=== PATIENT | female | born 1970 | race Caucasian/White ===

== ENCOUNTER → 2017-07-03 | Outpatient (CLI) | payer OTHER ==
[2017-07-04 14:43] LABS: FOLATE (FOLIC ACID) 12.6 ng/mL (7.0-31.4)
== END ==
LOC: LAB 16:12
PROVIDERS: Nurse Practitioner Family
DX: D75.89 Other specified diseases of blood and blood-forming organs (principal)

== ENCOUNTER → 2018-03-31 | Outpatient (CLI) | payer OTHER ==
[2018-03-31 09:58] LABS: EOS % 0.5 % (1.0-5.0); HEMATOCRIT 40.9 % (37.0-47.0); HEMOGLOBIN 13.9 g/dL (12.5-16.0); LYMPH# 1.5 (1.50-4.00); MEAN CELL VOLUME 100 fl (78-100); MEAN CORPUSCULAR HEMOGLOBIN 34 pg (27-31); MEAN CORPUSCULAR HGB CONC 34 g/dL (33-37); MEAN PLATELET VOLUME 10.7 fl (7.4-10.4); MONO # 0.4 (0.20-0.80); NEU # 6.5 (1.40-6.50); PLATELET COUNT 260 K/mm3 (130-400); RED BLOOD COUNT 4.11 M/mm3 (4.10-5.30); RED CELL DISTRIBUTION WIDTH 12.8 % (11.5-14.5); WHITE BLOOD COUNT 8.5 K/mm3 (4.8-10.8)
[2018-03-31 10:12] LABS: ALBUMIN 4.4 g/dL (3.5-5.0); CALCIUM 9.5 mg/dL (8.4-10.2); POTASSIUM 4.4 mmol/L (3.6-5.0); TOTAL BILIRUBIN 0.9 mg/dL (0.2-1.3); TOTAL PROTEIN 7.1 g/dL (6.3-8.2)
[2018-03-31 23:46] LABS: PROLACTIN 6.6 ng/mL (5.2-26.5)
== END ==
LOC: LAB 09:29
PROVIDERS: Family Medicine
DX: Z00.00 Encounter for general adult medical examination without abnormal findings (principal); D35.2 Benign neoplasm of pituitary gland; R53.83 Other fatigue; E55.9 Vitamin D deficiency, unspecified; Z83.49 Family history of other endocrine, nutritional and metabolic diseases

== ENCOUNTER → 2019-09-08 | Outpatient (CLI) | payer OTHER | LOC: LAB 09-07 11:38 | DX: Z20.828 Contact with and (suspected) exposure to other viral communicable diseases (principal) ==

== ENCOUNTER → 2021-01-23 | Outpatient (CLI) | payer OTHER ==
[2021-01-23 11:41] LABS: BASO # 0.02 K/mm3 (0.02-0.10); EOS # 0.03 K/mm3 (0.04-0.40); EOS % 0.4 % (1.0-5.0); HEMATOCRIT 42.9 % (37.0-47.0); LYMPH# 1.95 K/mm3 (1.50-4.00); MEAN CELL VOLUME 101 fl (78-100); MEAN CORPUSCULAR HEMOGLOBIN 33 pg (27-31); MEAN CORPUSCULAR HGB CONC 33 g/dL (33-37); MONO # 0.36 K/mm3 (0.20-0.80); NEU # 5.69 K/mm3 (1.40-6.50); PLATELET COUNT 288 K/mm3 (130-400); RED BLOOD COUNT 4.24 M/mm3 (4.10-5.30); RED CELL DISTRIBUTION WIDTH 12.6 % (11.5-14.5); WHITE BLOOD COUNT 8.1 K/mm3 (4.8-10.8)
[2021-01-23 11:42] LABS: POTASSIUM 3.6 mmol/L (3.5-5.1)
[2021-01-23 11:43] LABS: ALBUMIN 4.1 g/dL (3.5-5.0)
[2021-01-23 11:44] LABS: CALCIUM 9.4 mg/dL (8.3-10.5)
[2021-01-23 11:45] LABS: TOTAL PROTEIN 6.9 g/dL (6.4-8.3)
[2021-01-23 11:47] LABS: TOTAL BILIRUBIN 0.7 mg/dL (0.2-1.2)
[2021-01-24 00:12] LABS: PROLACTIN AMS 4.9 ng/mL (5.2-26.5)
== END ==
LOC: LAB 10:30
PROVIDERS: Family Medicine
DX: Z00.00 Encounter for general adult medical examination without abnormal findings (principal); E55.9 Vitamin D deficiency, unspecified; D35.2 Benign neoplasm of pituitary gland; E78.5 Hyperlipidemia, unspecified; Z83.49 Family history of other endocrine, nutritional and metabolic diseases

== ENCOUNTER → 2021-01-26 | Outpatient (CLI) | payer OTHER ==
[2021-01-26 23:45] LABS: FOLLICLE STIMULATING HORMONE 15.3 mIU/mL (()); LUTENIZING HORMONE 4.8 mIU/mL (())
== END ==
LOC: LAB 08:19
PROVIDERS: Family Medicine
DX: E23.0 Hypopituitarism (principal)

== ENCOUNTER → 2022-06-27 | Outpatient (CLI) | payer OTHER ==
[2022-06-27 09:03] LABS: BASO # 0.02 K/mm3 (0.02-0.10); EOS # 0.03 K/mm3 (0.04-0.40); EOS % 0.4 % (1.0-5.0); HEMATOCRIT 42.6 % (37.0-47.0); HEMOGLOBIN 14.2 g/dL (12.5-16.0); LYMPH# 1.62 K/mm3 (1.50-4.00); MEAN CELL VOLUME 100 fl (78-100); MEAN CORPUSCULAR HEMOGLOBIN 33 pg (27-31); MEAN CORPUSCULAR HGB CONC 33 g/dL (33-37); MEAN PLATELET VOLUME 10.1 fl (7.4-10.4); MONO # 0.41 K/mm3 (0.20-0.80); NEU # 4.83 K/mm3 (1.40-6.50); PLATELET COUNT 249 K/mm3 (130-400); RED BLOOD COUNT 4.27 M/mm3 (4.10-5.30); RED CELL DISTRIBUTION WIDTH 12.5 % (11.5-14.5); WHITE BLOOD COUNT 6.9 K/mm3 (4.8-10.8)
[2022-06-27 09:05] LABS: POTASSIUM 4.2 mmol/L (3.5-5.1)
[2022-06-27 09:06] LABS: ALBUMIN 4.5 g/dL (3.5-5.0)
[2022-06-27 09:07] LABS: CALCIUM 10.3 mg/dL (8.3-10.5)
[2022-06-27 09:08] LABS: TOTAL PROTEIN 6.9 g/dL (6.4-8.3)
[2022-06-27 09:10] LABS: TOTAL BILIRUBIN 0.7 mg/dL (0.2-1.2)
[2022-06-27 21:51] LABS: FOLLICLE STIMULATING HORMONE 73.9 mIU/mL (()); LUTENIZING HORMONE 36.7 mIU/mL (())
== END ==
LOC: LAB 08:44
PROVIDERS: Nurse Practitioner
DX: Z00.00 Encounter for general adult medical examination without abnormal findings (principal)

== ENCOUNTER → 2024-01-22 | Outpatient (CLI) | payer OTHER ==
[2024-01-22 07:48] LABS: ALBUMIN 4.5 g/dL (3.5-5.0)
[2024-01-22 07:49] LABS: CALCIUM 9.5 mg/dL (8.3-10.5)
[2024-01-22 08:11] LABS: TOTAL BILIRUBIN 0.9 mg/dL (0.2-1.2)
== END ==
LOC: LAB 07:20
PROVIDERS: Nurse Practitioner
DX: E78.5 Hyperlipidemia, unspecified (principal)